=== PATIENT | male | born 1995 ===

== ENCOUNTER 2018-12-15 12:55 | Emergency (ER) | payer OTHER ==
[2018-12-15 13:00] VITALS: PULSE 70; RESP 20; TEMP 98.6
[2018-12-15 13:14] VITALS: BP 124/80; O2SAT 100
--- NOTE | 2018-12-15 13:42 | C.PDOC ---
History Of Present Illness 23 y/o male pt presents to the ER c/o neck pain. Pt reports he fell off 5 steps from his ladder and struck his head. Pt denies LOC and headache. Pt notes he also had a nose bleed after the incident but currently has no active bleeding. Time Seen by Provider: 12/15/18 13:12 Chief Complaint (Nursing): Back Pain History Per: Patient History/Exam Limitations: no limitations Onset/Duration Of Symptoms: Hrs Current Symptoms Are (Timing): Still Present Past Medical History Reviewed: Historical Data, Nursing Documentation, Vital Signs Vital Signs: Last Vital Signs Temp 98.6 F 12/15/18 13:13 Pulse 70 12/15/18 13:13 Resp 20 12/15/18 13:13 BP 124/80 12/15/18 13:13 Pulse Ox 100 12/15/18 13:13 - Medical History PMH: Asthma Family History: States: Unknown Family Hx - Social History Hx Tobacco Use: No Hx Alcohol Use: No Hx Substance Use: No - Immunization History Hx Tetanus Toxoid Vaccination: No Hx Influenza Vaccination: No Hx Pneumococcal Vaccination: No Review Of Systems Except As Marked, All Systems Reviewed And Found Negative. Musculoskeletal: Positive for: Neck Pain Physical Exam - Physical Exam Head: Atraumatic, Normacephalic, No Tenderness, No Swelling, No Abrasion, No Laceration, No Other (scalp deformity ) Eye(s): bilateral: Normal Inspection, PERRL, EOMI Nose: Normal Oral Mucosa: Moist Neck: No Midline Cervical Tenderness, Paracervical Tenderness (left ) Chest: Symmetrical, No Deformity Cardiovascular: Rhythm Regular Respiratory: Normal Breath Sounds, No Rales, No Rhonchi, No Wheezing Gastrointestinal/Abdominal: Soft, No Tenderness Back: No CVA Tenderness Extremity: Normal ROM (x4) Neurological/Psych: Oriented x3, Normal Speech, Normal Cognition ED Course And Treatment O2 Sat by Pulse Oximetry: 100 (RA) Pulse Ox Interpretation: Normal Medical Decision Making Medical Decision Making: Assessment: minor head injury and cervical strain Plans: -- CT head -- cervical spine XR - prel. reading no fracture Disposition Counseled Patient/Family Regarding: Studies Performed, Diagnosis, Need For Followup, Rx Given - Disposition Referrals: Darío Bryson MD [Medical Doctor] - Disposition: HOME/ ROUTINE Disposition Time: 14:43 Condition: STABLE Additional Instructions: follow up with your doctor within 2 days call to make an appointment motrin or advil as needed for pain return to ER if symptoms worsens or progress Prescriptions: Naproxen [Naprosyn] 500 mg PO BID PRN #16 tab PRN Reason: Pain, Moderate (4-7) Instructions: Minor Head Injury (DC), Cervical Muscle Strain (DC) Forms: General Discharge Instructions, [facility] (Danish), Work Excuse - Clinical Impression Clinical Impression: Head injury, Cervical strain - Scribe Statement The provider has reviewed the documentation as recorded by the Miah Ma Do Provider Attestation: All medical record entries made by the Miah were at my direction and personally dictated by me. I have reviewed the chart and agree that the record accurately reflects my personal performance of the history, physical exam, medical decision making, and the department course for this patient. I have also personally directed, reviewed, and agree with the discharge instructions and disposition.
--- NOTE | 2018-12-15 14:13 | CT ---
Date of service: 12/15/2018 PROCEDURE: CT HEAD WITHOUT CONTRAST. HISTORY: dizziness COMPARISON: None available. TECHNIQUE: Axial computed tomography images were obtained through the head/brain without intravenous contrast. Radiation dose: Total exam DLP = 1117.12 mGy-cm. This CT exam was performed using one or more of the following dose reduction techniques: Automated exposure control, adjustment of the mA and/or kV according to patient size, and/or use of iterative reconstruction technique. FINDINGS: HEMORRHAGE: No intracranial hemorrhage. BRAIN: No mass effect or edema. No atrophy or chronic microvascular ischemic changes. VENTRICLES: Unremarkable. No hydrocephalus. CALVARIUM: Unremarkable. PARANASAL SINUSES: Unremarkable as visualized. No significant inflammatory changes. MASTOID AIR CELLS: Unremarkable as visualized. No inflammatory changes. OTHER FINDINGS: None. IMPRESSION: No evidence of acute intracranial hemorrhage mass effect or midline shift.
--- NOTE | 2018-12-15 15:43 | RAD ---
Date of service: 12/15/2018 PROCEDURE: Cervical Spine Radiographs. HISTORY: Pain. COMPARISON: None available. FINDINGS: BONES: Alignment maintained. No fracture. Dens Intact. DISC SPACES: Normal. SOFT TISSUES: Normal. No prevertebral soft tissue swelling. OTHER FINDINGS: None. IMPRESSION: No evidence of acute fracture or subluxation.
== END 2018-12-15 15:01 | disposition home or self-care (01) ==
LOC: C.ER 12:55
DX: S16.1XXA Strain of muscle, fascia and tendon at neck level, initial encounter (principal); W11.XXXA Fall on and from ladder, initial encounter